=== PATIENT | female | born 1995 | race Native Hawaiian/Other Pacific Islander ===

== ENCOUNTER 2019-01-31 20:51 | Emergency (ER) | payer OTHER ==
[~2019-01-31] VITALS: Ht 157.5 cm; Wt 74.8 kg
[2019-01-31 21:43] LABS: PLATELET COUNT 218 K/uL (152-353)
[2019-01-31 22:28] LABS: POTASSIUM 3.6 mmol/L (3.6-5.2)
[2019-01-31 22:58] VITALS: BP 132/70; TEMP 100
== END 2019-01-31 23:01 | disposition home or self-care (01) ==
LOC: ED 20:51
PROVIDERS: Emergency Medicine
DX: N39.0 Urinary tract infection, site not specified (principal)
CPT/HCPCS: 36415; 80053; 81000; 81025; 85027; 87086; 87088; 96361; 96365; 99284; J0696